=== PATIENT | female | born 1980 | race African-American/Black ===

== ENCOUNTER 2017-02-27 18:37 | Inpatient (IN) | payer MEDICAID ==
[~2017-02-27] VITALS: Ht 175.3 cm; Wt 112.6 kg
[2017-02-27] MEDS ORDERED: IV NORMAL SALINE 1000ML BAG 1,000 ML IV SCH (19:12)
[2017-02-27] MEDS ORDERED: ONDANSETRON PF 4 MG/2 ML VIAL. IV ONE (19:15)
[2017-02-27] MEDS ORDERED: hydrALAZINE 20 MG/ML VIAL. IVP ONE (19:15)
--- NOTE | 2017-02-27 19:26 | PHYS DOC ---
Past Medical History Past Medical History: Asthma, Hypertension, Other Additional Past Medical Histor: gallbladder problems Past Surgical History: Alcohol Use: None Drug Use: None Adult General Chief Complaint Chief Complaint: ABDOMINAL PAIN HPI HPI Patient is a 36 year old female who presents with complaint of abdominal pain. Patient states her symptoms started today. Patient rates her pain currently is 10 out of 10. Patient states the pain is sharp and located in her upper abdomen and in the right upper quadrant. Patient states that 1 month ago she was diagnosed with "gallbladder problems" in [place], [place]. Patient states that she recently moved this month to [place] because her was transferred by his job. The patient states that she had been told that she was supposed to have her gallbladder removed but states that for some reason this did not happen. She states that she was told that she may have eclampsia and had been put on "red pills" for her blood pressure but states that somebody recently stole them. Patient has had associated nausea and vomiting. Patient has not taken any medication to help with her symptoms. Patient states that normally when she gets the symptoms she is seen in an emergency department setting and given "ibuprofen through my IV." Patient also notes that she has had rectal bleeding however she is unable to quantify the amount of bleeding that she has noticed. Review of Systems Review of Systems Constitutional: Denies fever or chills [] Eyes: Denies change in visual acuity, redness, or eye pain [] HENT: Denies nasal congestion or sore throat [] Respiratory: Denies cough or shortness of breath [] Cardiovascular: Denies chest pain or edema [] GI: Abdominal pain, nausea, vomiting, bloody stools [] : Denies dysuria or hematuria [] Musculoskeletal: Denies back pain or joint pain [] Integument: Denies rash or skin lesions [] Neurologic: Denies headache, focal weakness or sensory changes [] Current Medications Current Medications Current Medications Medications (Trade) Dose Ordered Sig/Scottie Start Time Stop Time Status Last Admin Dose Admin Fentanyl Citrate 50 mcg 50 mcg PRN Q15MIN PRN 02/27/17 19:15 02/28/17 19:14 02/27/17 20:43 50 MCG Hydralazine HCl (Apresoline) 10 mg 1X ONCE 02/27/17 19:15 02/27/17 19:21 DC 02/27/17 19:38 10 MG Ondansetron HCl (Zofran) 4 mg 1X ONCE 02/27/17 19:15 02/27/17 19:21 DC 02/27/17 19:34 4 MG Sodium Chloride (Iv Sodium Chloride 0.9% 1000ml Bag) 1,000 ml @ 100 mls/hr Q10H 02/27/17 19:12 02/28/17 05:11 02/27/17 19:34 100 MLS/HR Allergies Allergies Allergies Coded Allergies Type Severity Reaction Last Updated Verified No Known Drug Allergies 02/27/17 No Physical Exam Physical Exam Constitutional: Alert, afebrile, hypertensive, appears in moderate discomfort. [ ] HENT: Normocephalic, atraumatic, bilateral external ears normal, oropharynx moist, no oral exudates, nose normal. [] Eyes: PERRLA, EOMI, conjunctiva normal, no discharge. [] Neck: Normal range of motion, no tenderness, supple, no stridor. [] Cardiovascular:Heart rate regular rhythm, no murmur [] Lungs & Thorax: Bilateral breath sounds clear to auscultation [] Abdomen: Bowel sounds normal, soft, epigastric and right upper quadrant tenderness to palpation with guarding, no rebound tenderness, no masses, no pulsatile masses. [] Skin: Warm, dry, no erythema, no rash. [] Back: No tenderness, no CVA tenderness. [] Extremities: No tenderness, no cyanosis, no clubbing, ROM intact, no edema. [] Neurologic: Alert and oriented X 3, normal motor function, normal sensory function, no focal deficits noted. [] Current Patient Data Vital Signs Vital Signs Date Time Temp Pulse Resp B/P Pulse Ox O2 Delivery O2 Flow Rate FiO2 02/27/17 20:43 24 100 Room Air 02/27/17 20:35 64 174/95 02/27/17 18:55 96.4 96.4 Lab Values Laboratory Tests Test 02/27/17 18:29 02/27/17 19:12 02/27/17 19:18 02/27/17 19:19 POC Urine HCG, Qualitative Hcg negative (Negative) Urine Opiates Screen Neg (NEG) Urine Methadone Screen Neg (NEG) Urine Barbiturates Neg (NEG) Urine Phencyclidine Screen Neg (NEG) Urine Amphetamine/Methamphetamine Neg (NEG) Urine Benzodiazepines Screen Neg (NEG) Urine Cocaine Screen Neg (NEG) Urine Cannabinoids Screen Pos (NEG) Urine Ethyl Alcohol Neg (NEG) White Blood Count 13.7x10^3/uL (4.0-11.0) H Red Blood Count 4.93x10^6/uL (3.50-5.40) Hemoglobin 13.7g/dL (12.0-15.5) Hematocrit 44.1% (36.0-47.0) Mean Corpuscular Volume 89fL (79-100) Mean Corpuscular Hemoglobin 28pg (25-35) Mean Corpuscular Hemoglobin Concent 31g/dL (31-37) Red Cell Distribution Width 14.9% (11.5-14.5) H Platelet Count 317x10^3/uL (140-400) Neutrophils (%) (Auto) 70% (31-73) Lymphocytes (%) (Auto) 19% (24-48) L Monocytes (%) (Auto) 6% (0-9) Eosinophils (%) (Auto) 4% (0-3) H Basophils (%) (Auto) 1% (0-3) Neutrophils # (Auto) 9.6x10^3uL (1.8-7.7) H Lymphocytes # (Auto) 2.6x10^3/uL (1.0-4.8) Monocytes # (Auto) 0.8x10^3/uL (0.0-1.1) Eosinophils # (Auto) 0.6x10^3/uL (0.0-0.7) Basophils # (Auto) 0.1x10^3/uL (0.0-0.2) Sodium Level 145mmol/L (136-145) Potassium Level 3.8mmol/L (3.5-5.1) Chloride Level 105mmol/L (98-107) Carbon Dioxide Level 31mmol/L (21-32) Anion Gap 9 (6-14) Blood Urea Nitrogen 8mg/dL (7-20) Creatinine 1.0mg/dL (0.6-1.0) Estimated GFR (Cockcroft-Gault) 75.1 BUN/Creatinine Ratio 8 (6-20) Glucose Level 106mg/dL (70-99) H Calcium Level 9.5mg/dL (8.5-10.1) Total Bilirubin 0.3mg/dL (0.2-1.0) Aspartate Amino Transferase (AST) 16U/L (15-37) Alanine Aminotransferase (ALT) 23U/L (14-59) Alkaline Phosphatase 78U/L (46-116) Total Protein 7.1g/dL (6.4-8.2) Albumin 3.6g/dL (3.4-5.0) Albumin/Globulin Ratio 1.0 (1.0-1.7) Lipase 93U/L (73-393) Urine Collection Type Unknown Urine Color Yellow Urine Clarity Cloudy Urine pH 7.5 Urine Specific [place] 1.015 Urine Protein 30mg/dL (NEG-TRACE) Urine Glucose (UA) Negativemg/dL (NEG) Urine Ketones (Stick) Negativemg/dL (NEG) Urine Blood Negative (NEG) Urine Nitrite Negative (NEG) Urine Bilirubin Negative (NEG) Urine Urobilinogen Dipstick 0.2mg/dL (0.2 mg/dL) Urine Leukocyte Esterase Negative (NEG) Urine RBC 0/HPF (0-2) Urine WBC 1-4/HPF (0-4) Urine Squamous Epithelial Cells Many/LPF Urine Bacteria Moderate/HPF (0-FEW) Urine Mucus Slight/LPF Test 02/27/17 19:45 Stool Occult Blood Negative (NEG) Laboratory Tests 02/27/17 19:18 Laboratory Tests 02/27/17 19:18 EKG EKG Not performed [] Radiology/Procedures Radiology/Procedures [facility] [address] [place], [place] [id number] IMAGING REPORT Signed PATIENT: CHARLES GE ACCOUNT: [id number] : 1980 LOCATION: ER AGE: 36 SEX: F EXAM STATUS: REG ER ORD. PHYSICIAN: MARCIO ROLAND MD REASON: right upper quadrant pain PROCEDURE: ABDOMEN LTD PROCEDURE Limited abdominal ultrasound. HISTORY Right upper quadrant pain radiates to the back. Nausea and vomiting. Symptoms increased postprandial. TECHNIQUE Real-time ultrasound imaging of the right upper quadrant of the abdomen is performed. COMPARISON None. FINDINGS Pancreas is not well seen. Portal flow is hepatopetal. Liver is normal in echotexture. Right hepatic lobe measures 16.2 cm, normal. Right kidney length 10.4 cm. No hydronephrosis. There is cholelithiasis. There is a stone towards the neck measuring 11 millimeters. Sonographic Agarwal sign is positive. Gallbladder wall is not thickened measuring 2.5 millimeters. No pericholecystic fluid is seen. The common bile duct is normal in caliber measuring 4 millimeters. IMPRESSION Cholelithiasis. Sonographic Agarwal sign is positive. No gallbladder wall thickening. Findings may indicate cholecystitis. This could be confirmed with nuclear medicine hepatobiliary scan as clinically warranted. Electronically signed by: Ziggy Miranda MD (Feb 27, 2017 20:44:17) DICTATED and SIGNED BY: ZIGGY MIRANDA MD DATE: 02/27/172043 CC: MARCIO ROLAND MD; NO PCP ~ [] Course & Med Decision Making Course & Med Decision Making Pertinent Labs and Imaging studies reviewed. (See chart for details) Patient was given IV fluids, fentanyl, Zofran, and Haldol to help with symptoms. On reevaluation, patient states her symptoms have improved and her pain levels currently 4 out of 10. Patient was noted to have a positive sonographic Agarwal's and positive study for cholelithiasis on her ultrasound. Patient also has leukocytosis on her lab work. Patient is showing signs of possible early acute cholecystitis. Patient also has significantly elevated blood pressure which was treated initially with IV hydralazine in the emergency department. Patient's blood pressure has improved but is still significantly elevated. The patient will require admission to the hospital for control blood pressure and surgical evaluation for possible removal. I spoke with Dr. Real of general surgery who agreed consult on patient in hospital. Patient was admitted to Dr. Lynch. Chris Disclaimer Chris Disclaimer This electronic medical record was generated, in whole or in part, using a voice recognition dictation system. Departure Departure Impression: Primary Impression: Accelerated hypertension Additional Impression: Acute cholecystitis Disposition: ADMITTED INPATIENT Admitting Physician: Napoleon Lynch Condition: GUARDED Referrals: NO PCP (PCP) Problem Qualifiers MARCIO ROLAND MD Feb 27, 2017 19:25
[2017-02-27 19:30] LABS: BASO # 0.1 x10^3/uL (0.0-0.2); BASO % 1 % (0-3); EOS % 4 % (0-3); HEMATOCRIT 44.1 % (36.0-47.0); HEMOGLOBIN 13.7 g/dL (12.0-15.5); LYMPH # 2.6 x10^3/uL (1.0-4.8); LYMPH % 19 % (24-48); MEAN CORPUSCULAR HEMOGLOBIN 28 pg (25-35); MEAN CORPUSCULAR HGB CONC 31 g/dL (31-37); MEAN CORPUSCULAR VOLUME 89 fL (79-100); MONO % 6 % (0-9); NEUT % 70 % (31-73); PLATELET COUNT 317 x10^3/uL (140-400); RED BLOOD COUNT 4.93 x10^6/uL (3.50-5.40); RED CELL DISTRIBUTION WIDTH 14.9 % (11.5-14.5); WHITE BLOOD COUNT 13.7 x10^3/uL (4.0-11.0)
[2017-02-27 19:33] LABS: BILIRUBIN,URINE NEGATIVE (NEG); GLUCOSE,URINE NEGATIVE (NEG); NITRITE,URINE NEGATIVE (NEG); PH,URINE 7.5; PROTEIN,URINE 30 mg/dL (NEG-TRACE); UROBILINOGEN,URINE 0.2 mg/dL (0.2 mg/dL)
[2017-02-27] MEDS: FENTANYL PF 100 MCG/2 ML VIAL. IV PRN ×2 (19:36→20:43)
[2017-02-27 19:41] LABS: BACTERIA,URINE MODERATE /HPF (0-FEW); RBC,URINE 0 /HPF (0-2); SQUAMOUS EPITHELIAL CELL,UR MANY /LPF
[2017-02-27 19:41] LABS: CALCIUM 9.5 mg/dL (8.5-10.1); GFR 75.1; POTASSIUM 3.8 mmol/L (3.5-5.1)
[2017-02-27 19:46] LABS: ALBUMIN 3.6 g/dL (3.4-5.0); TOTAL BILIRUBIN 0.3 mg/dL (0.2-1.0); TOTAL PROTEIN 7.1 g/dL (6.4-8.2)
[2017-02-27 20:22] LABS: NEG OBC FOB NEG; POS OBC FOB POS
[2017-02-27 20:26] LABS: BARBITURATES NEG (NEG); BENZODIAZEPINES NEG (NEG); CANNABINOIDS POS (NEG); COCAINE NEG (NEG); METHADONE NEG (NEG); OPIATES NEG (NEG); PHENCYCLIDINE NEG (NEG)
[2017-02-27 20:30] LABS: ETHANOL, URINE NEG (NEG)
--- NOTE | 2017-02-27 20:45 | RAD ---
PROCEDURE Limited abdominal ultrasound. HISTORY Right upper quadrant pain radiates to the back. Nausea and vomiting. Symptoms increased postprandial. TECHNIQUE Real-time ultrasound imaging of the right upper quadrant of the abdomen is performed. COMPARISON None. FINDINGS Pancreas is not well seen. Portal flow is hepatopetal. Liver is normal in echotexture. Right hepatic lobe measures 16.2 cm, normal. Right kidney length 10.4 cm. No hydronephrosis. There is cholelithiasis. There is a stone towards the neck measuring 11 millimeters. Sonographic Agarwal sign is positive. Gallbladder wall is not thickened measuring 2.5 millimeters. No pericholecystic fluid is seen. The common bile duct is normal in caliber measuring 4 millimeters. IMPRESSION Cholelithiasis. Sonographic Agarwal sign is positive. No gallbladder wall thickening. Findings may indicate cholecystitis. This could be confirmed with nuclear medicine hepatobiliary scan as clinically warranted. Electronically signed by: Ziggy Miranda MD (Feb 27, 2017 20:44:17)
[2017-02-27] MEDS ORDERED: ACETAMINOPHEN 325 MG TABLET. PO PRN (23:00)
[2017-02-27] MEDS ORDERED: hydrALAZINE 20 MG/ML VIAL. IVP PRN (23:00)
[2017-02-27] MEDS ORDERED: ONDANSETRON PF 4 MG/2 ML VIAL. IV PRN (23:00)
[2017-02-28] VITALS (12 sets, daily range): BP systolic 130–160; BP diastolic 81–100
[2017-02-28] MEDS: FENTANYL PF 100 MCG/2 ML VIAL. IV PRN ×4 (02:17→22:40)
[2017-02-28] MEDS: IV NORMAL SALINE 1000ML BAG 1,000 ML IV SCH ×3 (02:18→22:40)
[2017-02-28] MEDS ORDERED: LEVO100T PO (03:10)
[2017-02-28] MEDS ORDERED: PROAIR HFA8.5 GM INH (03:10)
--- NOTE | 2017-02-28 05:17 | ACF ---
Admit Criteria Forms Admit Criteria Forms Admit Criteria Forms HYPERTENSION Clinical Indications for Admission to Inpatient Care ( Place "X" for any and all applicable criteria): Admission is indicated for ANY ONE of the following(1)(2)(3)(4): [ ]I. Hypertensive emergency, with evidence of acute and progressing target organ disease as indicated by ANY ONE of the following: [ ]a) Hypertensive encephalopathy (eg, confusion, altered mental status) [ ]b) Cerebral infarction [ ]c) Intracranial hemorrhage [ ]d) Myocardial ischemia or infarction [ ]e) Pulmonary edema [ ]f) Aortic dissection [ ]g) Seizure [ ]h) Acute renal insufficiency [ ]i) Papilledema [ ]j) Microangiopathic hemolytic anemia [ ]II. Adrenergic crisis (eg, severe hypertension due to pheochromocytoma crisis, cocaine or amphetamine intoxication, or clonidine withdrawal) [X]III. Severe hypertension (SBP greater than 180 mmHg or DBP greater than 110 mmHg or greater than the 95th percentile for age, gender, and height in pediatric patients) that cannot be controlled (eg, to SBP less than 160 mmHg and DBP less than 100 mmHg in adults) by treatment with oral medication in emergency department or observation care Extended stay beyond goal length of stay may be needed for(11)(12)(13): [ ]a) Persistent hypertensive encephalopathy [ ]b) Continuation of pulmonary edema [ ]c) Recurring or persistent severe hypertension [ ]d) Target organ damage (eg, angina, stroke, aortic dissection) [ ]e) Associated renal insufficiency The original [employer] content created by [employer] has been revised. The portions of the content which have been revised are identified through the use of italic text or in bold, and [facility] has neither reviewed nor approved the modified material. All other unmodified content is copyright [employer]. Please see references footnoted in the original [employer] edition 2016 CAROLINE HAMILTON Feb 28, 2017 05:17
[2017-02-28] MEDS ORDERED: CEFAZOLIN 2GM PREMIX 50 ML IV ONE ×2 (07:00→11:55)
[2017-02-28 07:14] LABS: BASO # 0.1 x10^3/uL (0.0-0.2); BASO % 1 % (0-3); EOS % 6 % (0-3); HEMATOCRIT 41.1 % (36.0-47.0); HEMOGLOBIN 13.1 g/dL (12.0-15.5); LYMPH # 2.3 x10^3/uL (1.0-4.8); LYMPH % 24 % (24-48); MEAN CORPUSCULAR HEMOGLOBIN 29 pg (25-35); MEAN CORPUSCULAR HGB CONC 32 g/dL (31-37); MEAN CORPUSCULAR VOLUME 90 fL (79-100); MONO % 7 % (0-9); NEUT % 63 % (31-73); PLATELET COUNT 265 x10^3/uL (140-400); RED BLOOD COUNT 4.58 x10^6/uL (3.50-5.40); RED CELL DISTRIBUTION WIDTH 15.1 % (11.5-14.5); WHITE BLOOD COUNT 9.6 x10^3/uL (4.0-11.0)
[2017-02-28 07:20] LABS: CALCIUM 8.5 mg/dL (8.5-10.1); CREATININE 0.9 mg/dL (0.6-1.0); GFR 84.8; POTASSIUM 3.9 mmol/L (3.5-5.1)
--- NOTE | 2017-02-28 08:53 | PDOC2 ---
CONSULT Date of Consult Date of Consult DATE: 02/28/17 TIME: 08:49 Reason for Consult Reason for Consult: Abd pain Identification/Chief Complaint Chief Complaint Abd pain Source Source: Patient History of Present Illness Reason for Visit: 36 yo female who has had several episodes in the last year of abdominal pain. She was told in the past she had gallstones. Pain has gotten much worse over the last 24 hours associated with N/V. U/S showed gallstones and positive Agarwal 's sign. Past Medical History Cardiovascular: HTN Pulmonary: Asthma GI: No pertinent hx Heme/Onc: No pertinent hx Hepatobiliary: No pertinent hx Psych: No pertinent hx Rheumatologic: No pertinent hx Infectious disease: No pertinent hx ENT: No pertinent hx Renal/: No pertinent hx Endocrine: No pertinent hx Dermatology: No pertinent hx Past Surgical History Past Surgical History: Family History Family History: No Significant Social History No ALCOHOL: none Drugs: Marijuana Lives: with Family Current Problem List Problem List Problems Medical Problems: (1) Accelerated hypertension Status: Acute (2) Acute cholecystitis Status: Acute Current Medications Current Medications Current Medications Fentanyl Citrate 50 mcg 50 mcg PRN Q15MIN PRN IV PAIN GREATER THAN 3/10 Last administered on 02/27/17 20:43; Start 02/27/17 at 19:15; Stop 02/28/17 at 00:00 ; Status DC Sodium Chloride (Iv Sodium Chloride 0.9% 1000ml Bag) 1,000 ml @ 100 mls/hr Q10H IV Last administered on 02/27/17 19:34; Start 02/27/17 at 19:12; Stop at 05:11; Status DC Ondansetron HCl (Zofran) 4 mg 1X ONCE IV Last administered on 02/27/17 19:34 ; Start 02/27/17 at 19:15; Stop 02/27/17 at 19:21; Status DC Hydralazine HCl (Apresoline) 10 mg 1X ONCE IVP Last administered on 02/27/17 19:38; Start 02/27/17 at 19:15; Stop 02/27/17 at 19:21; Status DC Ondansetron HCl (Zofran) 4 mg PRN Q8HRS PRN IV NAUSEA/VOMITING; Start 02/27/17 at 23:00; Stop 02/28/17 at 22:59 Fentanyl Citrate 50 mcg 50 mcg PRN Q2HR PRN IV SEVERE PAIN Last administered on 02/28/17 02:17; Start 02/27/17 at 23:00; Stop 02/28/17 at 22:59 Sodium Chloride (Iv Sodium Chloride 0.9% 1000ml Bag) 1,000 ml @ 100 mls/hr Q10H IV Last administered on 02/28/17 02:18; Start 02/27/17 at 22:53; Stop at 22:52 Acetaminophen (Tylenol) 650 mg PRN Q4HRS PRN PO FEVER Last administered on 02/28 02:16; Start 02/27/17 at 23:00; Stop 02/28/17 at 22:59 Hydralazine HCl 10 mg 10 mg PRN Q4HRS PRN IVP ELEVATED BP, SEE COMMENTS; Start 02/27/17 at 23:00 Cefazolin Sodium/ Dextrose (Ancef 2gm Premix) 50 ml @ 100 mls/hr ONCE ONCE IV ; Start 02/28/17 at 07:00; Stop 02/28/17 at 07:29; Status DC Active Scripts Active Reported Proair Hfa Inhaler (Albuterol Sulfate) 8.5 Gm Hfa.aer.ad 1 Puff INH PRN Q6HRS PRN Synthroid (Levothyroxine Sodium) 100 Mcg Tablet 1 Tab PO DAILY Allergies Allergies: Coded Allergies: No Known Drug Allergies (Unverified , 02/27/17) ROS Gastrointestinal: Yes Abdominal Pain, Yes Nausea, Yes Vomiting Physical Exam General: Alert, Oriented X3, Cooperative, mild distress HEENT: Atraumatic, PERRLA, EOMI Lungs: Clear to auscultation, Normal air movement Heart: Regular rate, No murmurs Abdomen: Normal bowel sounds, Soft, Other (TTP RUQ) Extremities: No edema Skin: No significant lesion Neuro: Normal speech Psych/Mental Status: Mental status NL Vitals VITALS Vital Signs Date Time Temp Pulse Resp B/P Pulse Ox O2 Delivery O2 Flow Rate FiO2 02/28/17 07:00 97.8 91 16 130/84 95 Room Air 97.8 Labs Labs Laboratory Tests Test 02/27/17 18:29 02/27/17 19:12 02/27/17 19:18 02/27/17 19:19 Bedside Urine HCG, Qualitative Hcg negative (Negative) Urine Opiates Screen Neg (NEG) Urine Methadone Screen Neg (NEG) Urine Barbiturates Neg (NEG) Urine Phencyclidine Screen Neg (NEG) Urine Amphetamine/Methamphetamine Neg (NEG) Urine Benzodiazepines Screen Neg (NEG) Urine Cocaine Screen Neg (NEG) Urine Cannabinoids Screen Pos (NEG) Urine Ethyl Alcohol Neg (NEG) White Blood Count 13.7x10^3/uL (4.0-11.0) Red Blood Count 4.93x10^6/uL (3.50-5.40) Hemoglobin 13.7g/dL (12.0-15.5) Hematocrit 44.1% (36.0-47.0) Mean Corpuscular Volume 89fL (79-100) Mean Corpuscular Hemoglobin 28pg (25-35) Mean Corpuscular Hemoglobin Concent 31g/dL (31-37) Red Cell Distribution Width 14.9% (11.5-14.5) Platelet Count 317x10^3/uL (140-400) Neutrophils (%) (Auto) 70% (31-73) Lymphocytes (%) (Auto) 19% (24-48) Monocytes (%) (Auto) 6% (0-9) Eosinophils (%) (Auto) 4% (0-3) Basophils (%) (Auto) 1% (0-3) Neutrophils # (Auto) 9.6x10^3uL (1.8-7.7) Lymphocytes # (Auto) 2.6x10^3/uL (1.0-4.8) Monocytes # (Auto) 0.8x10^3/uL (0.0-1.1) Eosinophils # (Auto) 0.6x10^3/uL (0.0-0.7) Basophils # (Auto) 0.1x10^3/uL (0.0-0.2) Sodium Level 145mmol/L (136-145) Potassium Level 3.8mmol/L (3.5-5.1) Chloride Level 105mmol/L (98-107) Carbon Dioxide Level 31mmol/L (21-32) Anion Gap 9 (6-14) Blood Urea Nitrogen 8mg/dL (7-20) Creatinine 1.0mg/dL (0.6-1.0) Estimated GFR (Cockcroft-Gault) 75.1 BUN/Creatinine Ratio 8 (6-20) Glucose Level 106mg/dL (70-99) Calcium Level 9.5mg/dL (8.5-10.1) Total Bilirubin 0.3mg/dL (0.2-1.0) Aspartate Amino Transf (AST/SGOT) 16U/L (15-37) Alanine Aminotransferase (ALT/SGPT) 23U/L (14-59) Alkaline Phosphatase 78U/L (46-116) Total Protein 7.1g/dL (6.4-8.2) Albumin 3.6g/dL (3.4-5.0) Albumin/Globulin Ratio 1.0 (1.0-1.7) Lipase 93U/L (73-393) Urine Collection Type Unknown Urine Color Yellow Urine Clarity Cloudy Urine pH 7.5 Urine Specific [place] 1.015 Urine Protein 30mg/dL (NEG-TRACE) Urine Glucose (UA) Negativemg/dL (NEG) Urine Ketones (Stick) Negativemg/dL (NEG) Urine Blood Negative (NEG) Urine Nitrite Negative (NEG) Urine Bilirubin Negative (NEG) Urine Urobilinogen Dipstick 0.2mg/dL (0.2 mg/dL) Urine Leukocyte Esterase Negative (NEG) Urine RBC 0/HPF (0-2) Urine WBC 1-4/HPF (0-4) Urine Squamous Epithelial Cells Many/LPF Urine Bacteria Moderate/HPF (0-FEW) Urine Mucus Slight/LPF Test 02/27/17 19:45 02/28/17 06:20 Stool Occult Blood Negative (NEG) White Blood Count 9.6x10^3/uL (4.0-11.0) Red Blood Count 4.58x10^6/uL (3.50-5.40) Hemoglobin 13.1g/dL (12.0-15.5) Hematocrit 41.1% (36.0-47.0) Mean Corpuscular Volume 90fL (79-100) Mean Corpuscular Hemoglobin 29pg (25-35) Mean Corpuscular Hemoglobin Concent 32g/dL (31-37) Red Cell Distribution Width 15.1% (11.5-14.5) Platelet Count 265x10^3/uL (140-400) Neutrophils (%) (Auto) 63% (31-73) Lymphocytes (%) (Auto) 24% (24-48) Monocytes (%) (Auto) 7% (0-9) Eosinophils (%) (Auto) 6% (0-3) Basophils (%) (Auto) 1% (0-3) Neutrophils # (Auto) 6.0x10^3uL (1.8-7.7) Lymphocytes # (Auto) 2.3x10^3/uL (1.0-4.8) Monocytes # (Auto) 0.6x10^3/uL (0.0-1.1) Eosinophils # (Auto) 0.6x10^3/uL (0.0-0.7) Basophils # (Auto) 0.1x10^3/uL (0.0-0.2) Sodium Level 143mmol/L (136-145) Potassium Level 3.9mmol/L (3.5-5.1) Chloride Level 106mmol/L (98-107) Carbon Dioxide Level 27mmol/L (21-32) Anion Gap 10 (6-14) Blood Urea Nitrogen 5mg/dL (7-20) Creatinine 0.9mg/dL (0.6-1.0) Estimated GFR (Cockcroft-Gault) 84.8 Glucose Level 92mg/dL (70-99) Calcium Level 8.5mg/dL (8.5-10.1) Laboratory Tests Test 02/27/17 18:29 02/27/17 19:12 02/27/17 19:18 02/27/17 19:19 Bedside Urine HCG, Qualitative Hcg negative (Negative) Urine Opiates Screen Neg (NEG) Urine Methadone Screen Neg (NEG) Urine Barbiturates Neg (NEG) Urine Phencyclidine Screen Neg (NEG) Urine Amphetamine/Methamphetamine Neg (NEG) Urine Benzodiazepines Screen Neg (NEG) Urine Cocaine Screen Neg (NEG) Urine Cannabinoids Screen Pos (NEG) Urine Ethyl Alcohol Neg (NEG) White Blood Count 13.7x10^3/uL (4.0-11.0) Red Blood Count 4.93x10^6/uL (3.50-5.40) Hemoglobin 13.7g/dL (12.0-15.5) Hematocrit 44.1% (36.0-47.0) Mean Corpuscular Volume 89fL (79-100) Mean Corpuscular Hemoglobin 28pg (25-35) Mean Corpuscular Hemoglobin Concent 31g/dL (31-37) Red Cell Distribution Width 14.9% (11.5-14.5) Platelet Count 317x10^3/uL (140-400) Neutrophils (%) (Auto) 70% (31-73) Lymphocytes (%) (Auto) 19% (24-48) Monocytes (%) (Auto) 6% (0-9) Eosinophils (%) (Auto) 4% (0-3) Basophils (%) (Auto) 1% (0-3) Neutrophils # (Auto) 9.6x10^3uL (1.8-7.7) Lymphocytes # (Auto) 2.6x10^3/uL (1.0-4.8) Monocytes # (Auto) 0.8x10^3/uL (0.0-1.1) Eosinophils # (Auto) 0.6x10^3/uL (0.0-0.7) Basophils # (Auto) 0.1x10^3/uL (0.0-0.2) Sodium Level 145mmol/L (136-145) Potassium Level 3.8mmol/L (3.5-5.1) Chloride Level 105mmol/L (98-107) Carbon Dioxide Level 31mmol/L (21-32) Anion Gap 9 (6-14) Blood Urea Nitrogen 8mg/dL (7-20) Creatinine 1.0mg/dL (0.6-1.0) Estimated GFR (Cockcroft-Gault) 75.1 BUN/Creatinine Ratio 8 (6-20) Glucose Level 106mg/dL (70-99) Calcium Level 9.5mg/dL (8.5-10.1) Total Bilirubin 0.3mg/dL (0.2-1.0) Aspartate Amino Transf (AST/SGOT) 16U/L (15-37) Alanine Aminotransferase (ALT/SGPT) 23U/L (14-59) Alkaline Phosphatase 78U/L (46-116) Total Protein 7.1g/dL (6.4-8.2) Albumin 3.6g/dL (3.4-5.0) Albumin/Globulin Ratio 1.0 (1.0-1.7) Lipase 93U/L (73-393) Urine Collection Type Unknown Urine Color Yellow Urine Clarity Cloudy Urine pH 7.5 Urine Specific [place] 1.015 Urine Protein 30mg/dL (NEG-TRACE) Urine Glucose (UA) Negativemg/dL (NEG) Urine Ketones (Stick) Negativemg/dL (NEG) Urine Blood Negative (NEG) Urine Nitrite Negative (NEG) Urine Bilirubin Negative (NEG) Urine Urobilinogen Dipstick 0.2mg/dL (0.2 mg/dL) Urine Leukocyte Esterase Negative (NEG) Urine RBC 0/HPF (0-2) Urine WBC 1-4/HPF (0-4) Urine Squamous Epithelial Cells Many/LPF Urine Bacteria Moderate/HPF (0-FEW) Urine Mucus Slight/LPF Test 02/27/17 19:45 02/28/17 06:20 Stool Occult Blood Negative (NEG) White Blood Count 9.6x10^3/uL (4.0-11.0) Red Blood Count 4.58x10^6/uL (3.50-5.40) Hemoglobin 13.1g/dL (12.0-15.5) Hematocrit 41.1% (36.0-47.0) Mean Corpuscular Volume 90fL (79-100) Mean Corpuscular Hemoglobin 29pg (25-35) Mean Corpuscular Hemoglobin Concent 32g/dL (31-37) Red Cell Distribution Width 15.1% (11.5-14.5) Platelet Count 265x10^3/uL (140-400) Neutrophils (%) (Auto) 63% (31-73) Lymphocytes (%) (Auto) 24% (24-48) Monocytes (%) (Auto) 7% (0-9) Eosinophils (%) (Auto) 6% (0-3) Basophils (%) (Auto) 1% (0-3) Neutrophils # (Auto) 6.0x10^3uL (1.8-7.7) Lymphocytes # (Auto) 2.3x10^3/uL (1.0-4.8) Monocytes # (Auto) 0.6x10^3/uL (0.0-1.1) Eosinophils # (Auto) 0.6x10^3/uL (0.0-0.7) Basophils # (Auto) 0.1x10^3/uL (0.0-0.2) Sodium Level 143mmol/L (136-145) Potassium Level 3.9mmol/L (3.5-5.1) Chloride Level 106mmol/L (98-107) Carbon Dioxide Level 27mmol/L (21-32) Anion Gap 10 (6-14) Blood Urea Nitrogen 5mg/dL (7-20) Creatinine 0.9mg/dL (0.6-1.0) Estimated GFR (Cockcroft-Gault) 84.8 Glucose Level 92mg/dL (70-99) Calcium Level 8.5mg/dL (8.5-10.1) Images Images as above HPI Assessment/Plan Assessment/Plan Symptomatic cholelithiasis Plan L/S Cholecystectomy today LOKI CHEEMA MD Feb 28, 2017 08:53
[2017-02-28] MEDS ORDERED: IV RINGERS,LACTATED 1000ML 1,000 ML IV SCH (09:43)
[2017-02-28] MEDS ORDERED: IOHEXOL 300 MG/ML 50 ML VIAL. ONE (09:43)
[2017-02-28] MEDS ORDERED: SURGICEL HEMOSTAT 4X8 EACH. ONE (09:43)
[2017-02-28] MEDS ORDERED: BUPIVACAINE-EPI 0.25%-1:200000 MPF 30 ML VIAL. ONE (09:43)
[2017-02-28] MEDS ORDERED: HYDROMORPHONE 2 MG/ML VIAL. IV PRN (09:45)
[2017-02-28] MEDS ORDERED: FENTANYL PF 100 MCG/2 ML VIAL. IV PRN (09:45)
[2017-02-28] MEDS ORDERED: ONDANSETRON PF 4 MG/2 ML VIAL. IV PRN (09:45)
[2017-02-28] MEDS ORDERED: MORPHINE SULFATE 2 MG/ML DISP.SYRIN. IV PRN (09:45)
[2017-02-28] MEDS ORDERED: LIDOCAINE 1% 1 ML SYRINGE. ID PRN (09:45)
[2017-02-28] MEDS ORDERED: PROCHLORPERAZINE 10 MG/2 ML VIAL. IV PRN (09:45)
--- NOTE | 2017-02-28 10:13 | PDOC1 ---
History and Physical Past Medical History Cardiovascular: HTN Pulmonary: Asthma GI: No pertinent hx Heme/Onc: No pertinent hx Hepatobiliary: No pertinent hx Psych: No pertinent hx Rheumatologic: No pertinent hx Infectious disease: No pertinent hx ENT: No pertinent hx Renal/: No pertinent hx Endocrine: No pertinent hx Dermatology: No pertinent hx Past Surgical History Past Surgical History: Family History Family History: No Significant Social History Smoke: No ALCOHOL: none Drugs: Marijuana Current Problem List Problem List Problems Medical Problems: (1) Accelerated hypertension Status: Acute (2) Acute cholecystitis Status: Acute Current Medications Current Medications Current Medications Medications (Trade) Dose Ordered Sig/Scottie Start Time Stop Time Status Last Admin Dose Admin Acetaminophen (Tylenol) 650 mg PRN Q4HRS PRN 02/27/17 23:00 02/28/17 22:59 02/28/17 02:16 650 MG Bupivacaine HCl/ Epinephrine Bitart (Sensorcaine-Epi 0.25%-1:[id number] Mpf) 30 ml STK-MED ONCE 02/28/17 09:43 02/28/17 09:44 DC Cefazolin Sodium/ Dextrose (Ancef 2gm Premix) 50 ml @ 100 mls/hr ONCE ONCE 02/28/17 07:00 02/28/17 07:29 DC Cellulose 1 each STK-MED ONCE 02/28/17 09:43 02/28/17 09:44 DC Fentanyl Citrate (Fentanyl 2ml Vial) 50 mcg PRN Q5MIN PRN 02/28/17 09:45 03/01/17 09:44 Fentanyl Citrate 50 mcg 50 mcg PRN Q2HR PRN 02/27/17 23:00 02/28/17 22:59 02/28/17 02:17 50 MCG Hydralazine HCl (Apresoline) 10 mg 1X ONCE 02/27/17 19:15 02/27/17 19:21 DC 02/27/17 19:38 10 MG Hydralazine HCl 10 mg 10 mg PRN Q4HRS PRN 02/27/17 23:00 Hydromorphone HCl (Dilaudid) 0.5 mg PRN Q10MIN PRN 02/28/17 09:45 03/01/17 09:44 Iohexol (Omnipaque 300 Mg/ml) 50 ml STK-MED ONCE 02/28/17 09:43 02/28/17 09:44 DC Lactated Ringer's (Iv Lactated Ringers) 1,000 ml @ 0 mls/hr Q0M 02/28/17 09:43 02/28/17 21:42 Lidocaine HCl 2 ml PRN 1X PRN 02/28/17 09:45 03/01/17 09:44 Morphine Sulfate 1 mg 1 mg PRN Q10MIN PRN 02/28/17 09:45 03/01/17 09:44 Ondansetron HCl (Zofran) 4 mg PRN Q6HRS PRN 02/28/17 09:45 03/01/17 09:44 Prochlorperazine Edisylate (Compazine) 5 mg PACU PRN PRN 02/28/17 09:45 03/01/17 09:44 Sodium Chloride (Iv Sodium Chloride 0.9% 1000ml Bag) 1,000 ml @ 100 mls/hr Q10H 02/27/17 22:53 02/28/17 22:52 02/28/17 08:53 100 MLS/HR Allergies Allergies Allergies Coded Allergies Type Severity Reaction Last Updated Verified No Known Drug Allergies 02/27/17 No ROS Review of System CONSTITUTIONAL: No fever or chills EYES: No recent changes SKIN: No rash or itching CARDIOVASCULAR: No chest pain, syncope, palpitations, or edema RESPIRATORY: No SOB or cough GASTROINTESTINAL: Nausea, vomiting or but abdominal pain NEUROLOGICAL: No headaches or weakness ENDOCRINE: No cold or heat intolerance GENITOURINARY: No urgency or frequency of urination MUSCULOSKELETAL: No back pain or joint pain LYMPHATICS: No enlarged lymph nodes PSYCHIATRIC: No anxiety or depression Physical Exam Physical Exam GEN.: No apparent distress. Alert and oriented. HEENT: Head is normocephalic, atraumatic NECK: Supple. No JVD LUNGS: Clear to auscultation. normal airflow HEART: RRR, S1, S2 present. Peripheral pulses intact ABDOMEN: Soft, mild RUQ zakia. Positive bowel sounds. EXTREMITIES: Without any cyanosis. NEUROLOGIC: Normal speech, normal tone PSYCHIATRIC: Normal affect, normal mood. SKIN: No visible rash Vitals Vitals Vital Signs Date Time Temp Pulse Resp B/P Pulse Ox O2 Delivery O2 Flow Rate FiO2 02/28/17 07:00 97.8 91 16 130/84 95 Room Air 97.8 Labs Labs Laboratory Tests Test 02/27/17 18:29 02/27/17 19:12 02/27/17 19:18 02/27/17 19:19 Bedside Urine HCG, Qualitative Hcg negative (Negative) Urine Opiates Screen Neg (NEG) Urine Methadone Screen Neg (NEG) Urine Barbiturates Neg (NEG) Urine Phencyclidine Screen Neg (NEG) Urine Amphetamine/Methamphetamine Neg (NEG) Urine Benzodiazepines Screen Neg (NEG) Urine Cocaine Screen Neg (NEG) Urine Cannabinoids Screen Pos (NEG) Urine Ethyl Alcohol Neg (NEG) White Blood Count 13.7x10^3/uL (4.0-11.0) Red Blood Count 4.93x10^6/uL (3.50-5.40) Hemoglobin 13.7g/dL (12.0-15.5) Hematocrit 44.1% (36.0-47.0) Mean Corpuscular Volume 89fL (79-100) Mean Corpuscular Hemoglobin 28pg (25-35) Mean Corpuscular Hemoglobin Concent 31g/dL (31-37) Red Cell Distribution Width 14.9% (11.5-14.5) Platelet Count 317x10^3/uL (140-400) Neutrophils (%) (Auto) 70% (31-73) Lymphocytes (%) (Auto) 19% (24-48) Monocytes (%) (Auto) 6% (0-9) Eosinophils (%) (Auto) 4% (0-3) Basophils (%) (Auto) 1% (0-3) Neutrophils # (Auto) 9.6x10^3uL (1.8-7.7) Lymphocytes # (Auto) 2.6x10^3/uL (1.0-4.8) Monocytes # (Auto) 0.8x10^3/uL (0.0-1.1) Eosinophils # (Auto) 0.6x10^3/uL (0.0-0.7) Basophils # (Auto) 0.1x10^3/uL (0.0-0.2) Sodium Level 145mmol/L (136-145) Potassium Level 3.8mmol/L (3.5-5.1) Chloride Level 105mmol/L (98-107) Carbon Dioxide Level 31mmol/L (21-32) Anion Gap 9 (6-14) Blood Urea Nitrogen 8mg/dL (7-20) Creatinine 1.0mg/dL (0.6-1.0) Estimated GFR (Cockcroft-Gault) 75.1 BUN/Creatinine Ratio 8 (6-20) Glucose Level 106mg/dL (70-99) Calcium Level 9.5mg/dL (8.5-10.1) Total Bilirubin 0.3mg/dL (0.2-1.0) Aspartate Amino Transf (AST/SGOT) 16U/L (15-37) Alanine Aminotransferase (ALT/SGPT) 23U/L (14-59) Alkaline Phosphatase 78U/L (46-116) Total Protein 7.1g/dL (6.4-8.2) Albumin 3.6g/dL (3.4-5.0) Albumin/Globulin Ratio 1.0 (1.0-1.7) Lipase 93U/L (73-393) Urine Collection Type Unknown Urine Color Yellow Urine Clarity Cloudy Urine pH 7.5 Urine Specific [place] 1.015 Urine Protein 30mg/dL (NEG-TRACE) Urine Glucose (UA) Negativemg/dL (NEG) Urine Ketones (Stick) Negativemg/dL (NEG) Urine Blood Negative (NEG) Urine Nitrite Negative (NEG) Urine Bilirubin Negative (NEG) Urine Urobilinogen Dipstick 0.2mg/dL (0.2 mg/dL) Urine Leukocyte Esterase Negative (NEG) Urine RBC 0/HPF (0-2) Urine WBC 1-4/HPF (0-4) Urine Squamous Epithelial Cells Many/LPF Urine Bacteria Moderate/HPF (0-FEW) Urine Mucus Slight/LPF Test 02/27/17 19:45 02/28/17 06:20 Stool Occult Blood Negative (NEG) White Blood Count 9.6x10^3/uL (4.0-11.0) Red Blood Count 4.58x10^6/uL (3.50-5.40) Hemoglobin 13.1g/dL (12.0-15.5) Hematocrit 41.1% (36.0-47.0) Mean Corpuscular Volume 90fL (79-100) Mean Corpuscular Hemoglobin 29pg (25-35) Mean Corpuscular Hemoglobin Concent 32g/dL (31-37) Red Cell Distribution Width 15.1% (11.5-14.5) Platelet Count 265x10^3/uL (140-400) Neutrophils (%) (Auto) 63% (31-73) Lymphocytes (%) (Auto) 24% (24-48) Monocytes (%) (Auto) 7% (0-9) Eosinophils (%) (Auto) 6% (0-3) Basophils (%) (Auto) 1% (0-3) Neutrophils # (Auto) 6.0x10^3uL (1.8-7.7) Lymphocytes # (Auto) 2.3x10^3/uL (1.0-4.8) Monocytes # (Auto) 0.6x10^3/uL (0.0-1.1) Eosinophils # (Auto) 0.6x10^3/uL (0.0-0.7) Basophils # (Auto) 0.1x10^3/uL (0.0-0.2) Sodium Level 143mmol/L (136-145) Potassium Level 3.9mmol/L (3.5-5.1) Chloride Level 106mmol/L (98-107) Carbon Dioxide Level 27mmol/L (21-32) Anion Gap 10 (6-14) Blood Urea Nitrogen 5mg/dL (7-20) Creatinine 0.9mg/dL (0.6-1.0) Estimated GFR (Cockcroft-Gault) 84.8 Glucose Level 92mg/dL (70-99) Calcium Level 8.5mg/dL (8.5-10.1) Laboratory Tests Test 02/27/17 18:29 02/27/17 19:12 02/27/17 19:18 02/27/17 19:19 Bedside Urine HCG, Qualitative Hcg negative (Negative) Urine Opiates Screen Neg (NEG) Urine Methadone Screen Neg (NEG) Urine Barbiturates Neg (NEG) Urine Phencyclidine Screen Neg (NEG) Urine Amphetamine/Methamphetamine Neg (NEG) Urine Benzodiazepines Screen Neg (NEG) Urine Cocaine Screen Neg (NEG) Urine Cannabinoids Screen Pos (NEG) Urine Ethyl Alcohol Neg (NEG) White Blood Count 13.7x10^3/uL (4.0-11.0) Red Blood Count 4.93x10^6/uL (3.50-5.40) Hemoglobin 13.7g/dL (12.0-15.5) Hematocrit 44.1% (36.0-47.0) Mean Corpuscular Volume 89fL (79-100) Mean Corpuscular Hemoglobin 28pg (25-35) Mean Corpuscular Hemoglobin Concent 31g/dL (31-37) Red Cell Distribution Width 14.9% (11.5-14.5) Platelet Count 317x10^3/uL (140-400) Neutrophils (%) (Auto) 70% (31-73) Lymphocytes (%) (Auto) 19% (24-48) Monocytes (%) (Auto) 6% (0-9) Eosinophils (%) (Auto) 4% (0-3) Basophils (%) (Auto) 1% (0-3) Neutrophils # (Auto) 9.6x10^3uL (1.8-7.7) Lymphocytes # (Auto) 2.6x10^3/uL (1.0-4.8) Monocytes # (Auto) 0.8x10^3/uL (0.0-1.1) Eosinophils # (Auto) 0.6x10^3/uL (0.0-0.7) Basophils # (Auto) 0.1x10^3/uL (0.0-0.2) Sodium Level 145mmol/L (136-145) Potassium Level 3.8mmol/L (3.5-5.1) Chloride Level 105mmol/L (98-107) Carbon Dioxide Level 31mmol/L (21-32) Anion Gap 9 (6-14) Blood Urea Nitrogen 8mg/dL (7-20) Creatinine 1.0mg/dL (0.6-1.0) Estimated GFR (Cockcroft-Gault) 75.1 BUN/Creatinine Ratio 8 (6-20) Glucose Level 106mg/dL (70-99) Calcium Level 9.5mg/dL (8.5-10.1) Total Bilirubin 0.3mg/dL (0.2-1.0) Aspartate Amino Transf (AST/SGOT) 16U/L (15-37) Alanine Aminotransferase (ALT/SGPT) 23U/L (14-59) Alkaline Phosphatase 78U/L (46-116) Total Protein 7.1g/dL (6.4-8.2) Albumin 3.6g/dL (3.4-5.0) Albumin/Globulin Ratio 1.0 (1.0-1.7) Lipase 93U/L (73-393) Urine Collection Type Unknown Urine Color Yellow Urine Clarity Cloudy Urine pH 7.5 Urine Specific [place] 1.015 Urine Protein 30mg/dL (NEG-TRACE) Urine Glucose (UA) Negativemg/dL (NEG) Urine Ketones (Stick) Negativemg/dL (NEG) Urine Blood Negative (NEG) Urine Nitrite Negative (NEG) Urine Bilirubin Negative (NEG) Urine Urobilinogen Dipstick 0.2mg/dL (0.2 mg/dL) Urine Leukocyte Esterase Negative (NEG) Urine RBC 0/HPF (0-2) Urine WBC 1-4/HPF (0-4) Urine Squamous Epithelial Cells Many/LPF Urine Bacteria Moderate/HPF (0-FEW) Urine Mucus Slight/LPF Test 02/27/17 19:45 02/28/17 06:20 Stool Occult Blood Negative (NEG) White Blood Count 9.6x10^3/uL (4.0-11.0) Red Blood Count 4.58x10^6/uL (3.50-5.40) Hemoglobin 13.1g/dL (12.0-15.5) Hematocrit 41.1% (36.0-47.0) Mean Corpuscular Volume 90fL (79-100) Mean Corpuscular Hemoglobin 29pg (25-35) Mean Corpuscular Hemoglobin Concent 32g/dL (31-37) Red Cell Distribution Width 15.1% (11.5-14.5) Platelet Count 265x10^3/uL (140-400) Neutrophils (%) (Auto) 63% (31-73) Lymphocytes (%) (Auto) 24% (24-48) Monocytes (%) (Auto) 7% (0-9) Eosinophils (%) (Auto) 6% (0-3) Basophils (%) (Auto) 1% (0-3) Neutrophils # (Auto) 6.0x10^3uL (1.8-7.7) Lymphocytes # (Auto) 2.3x10^3/uL (1.0-4.8) Monocytes # (Auto) 0.6x10^3/uL (0.0-1.1) Eosinophils # (Auto) 0.6x10^3/uL (0.0-0.7) Basophils # (Auto) 0.1x10^3/uL (0.0-0.2) Sodium Level 143mmol/L (136-145) Potassium Level 3.9mmol/L (3.5-5.1) Chloride Level 106mmol/L (98-107) Carbon Dioxide Level 27mmol/L (21-32) Anion Gap 10 (6-14) Blood Urea Nitrogen 5mg/dL (7-20) Creatinine 0.9mg/dL (0.6-1.0) Estimated GFR (Cockcroft-Gault) 84.8 Glucose Level 92mg/dL (70-99) Calcium Level 8.5mg/dL (8.5-10.1) VTE Prophylaxis Ordered VTE Prophylaxis Devices: Yes VTE Pharmacological Prophylaxi: Yes NICOLAS ALONSO MD Feb 28, 2017 10:13
[2017-02-28] MEDS ORDERED: ALBUTEROL SULFATE 2.5 MG/3 ML NEBU. NEB PRN (11:45)
[2017-02-28] MEDS ORDERED: PROPOFOL 20 ML IV ONE ×2 (12:44→13:07)
[2017-02-28] MEDS ORDERED: FENTANYL PF 100 MCG/2 ML VIAL. ONE ×2 (12:44→13:19)
[2017-02-28] MEDS ORDERED: ROCURONIUM 50 MG/5 ML VIAL. ONE (12:44)
[2017-02-28] MEDS ORDERED: DESFLURANE > 120 MINUTES IH ONE (12:44)
[2017-02-28] MEDS ORDERED: ONDANSETRON PF 4 MG/2 ML VIAL. ONE (12:45)
[2017-02-28] MEDS ORDERED: LIDOCAINE 2% 100 MG/5 ML SYRINGE. ONE (12:45)
[2017-02-28] MEDS ORDERED: ESMOLOL 100 MG/10 ML VIAL. IV ONE (13:10)
[2017-02-28] MEDS ORDERED: LABETALOL 20 MG/4 ML DISP.SYRIN. ONE (13:21)
[2017-02-28] MEDS ORDERED: NEOSTIGMINE METHYLSULFATE 5 MG/5 ML SYRINGE. ONE (13:34)
[2017-02-28] MEDS ORDERED: GLYCOPYRROLATE 1 MG/5 ML VIAL. ONE (13:34)
--- NOTE | 2017-02-28 13:43 | PDOC ---
BRIEF OPERATIVE NOTE Date: Feb 28, 2017 Pre-Op Diagnosis Cholecystitis with cholelithiasis Post-Op Diagnosis Same Procedure Performed L/S Cholecystectomy Surgeon Farhan Anesthesia Type: General Blood Loss 10ml Specimens Obtained Gallbladder Findings as above Complications None LOKI CHEEMA MD Feb 28, 2017 1:43 pm
[2017-02-28] MEDS ORDERED: OXYCODONE/APAP 5/325 TABLET. PO PRN ×2 (13:45)
[2017-02-28] MEDS ORDERED: MORPHINE SULFATE 10 MG/ML VIAL. ONE (13:47)
--- NOTE | 2017-02-28 14:44 | HP ---
ADMIT DATE: 02/27/2017 CHIEF COMPLAINT: Abdominal pain. HISTORY OF PRESENT ILLNESS: A 36-year-old -[place] female, who presented to the ER with complaints of abdominal pain, right upper quadrant pain. The abdominal pain was there for nearly a few years. She was diagnosed with gallstones in the past; however, she recently moved from [place], [place] to [facility]. She never had any surgeries. The pain is intractable in nature at the time of her presentation, 10/10, and dull in nature. Denies any fevers, chills or hematemesis or hematochezia. Also, she had preeclampsia and she has a 4-month-old child; however, she is not taking any blood pressure medications at this time. PAST MEDICAL HISTORY: Hypertension, questionable asthma, hypothyroidism, gallbladder problems, and . PERSONAL HISTORY: No smoking, no alcohol, and no drug abuse. Recently moved to [facility]. FAMILY HISTORY: Unknown. REVIEW OF SYSTEMS AND PHYSICAL EXAMINATION: Please see my electronic H and P. LABORATORY FINDINGS: CBC within normal limits, except for a WBC count of 13.7. Chemistry within normal limits. Toxicology is positive for cannabinoids. Urine nitrites negative, leukocyte esterase negative. test negative. Stool occult test is negative. IMAGING STUDIES: Ultrasound of the abdomen showed cholelithiasis with positive Agarwal's sign, sonographic. ASSESSMENT: 1. Right upper quadrant abdominal pain due to possible cholecystitis, planning for a laparoscopic cholecystectomy today. 2. Hypothyroidism, chronic, stable. 3. Questionable hypertension, currently controlled without any medications, maybe elevated at the time of presentation due to pain. PLAN: 1. Pain control with morphine IV q. 2h., and p.o. and IV hydration. 2. I will resume her home medications. 3. . ____ has been consulted, planning for cholecystectomy today. The patient is agreeable. NICOLAS ALONSO MD DR: YUSUF/corazon JOB#: [id number] / [id number]
[2017-02-28] MEDS: LEVOTHYROXINE 100 MCG TABLET PO SCH (16:27)
[2017-02-28] MEDS: KETOROLAC 15 MG/ML VIAL. IV SCH (17:55)
--- NOTE | 2017-02-28 19:15 | OP ---
DATE OF SURGERY: 02/28/2017 PREOPERATIVE DIAGNOSES: Cholecystitis, cholelithiasis. POSTOPERATIVE DIAGNOSES: Cholecystitis, cholelithiasis. PROCEDURE: Laparoscopic cholecystectomy. SURGEON: Celestino Cheema MD INDICATIONS: The patient is a 36-year-old female who was admitted to the hospital with right upper quadrant abdominal pain, nausea, vomiting. Ultrasound showing gallstones. Procedure of laparoscopic cholecystectomy was explained to the patient in detail. Risks, benefits were also discussed including bleeding, infection, injury to intra-abdominal contents, possibly necessitating further open operations. Alternatives of this procedure were also discussed with the patient who seemed to understand and gave verbal and written consent to have the procedure performed. DESCRIPTION OF PROCEDURE: The patient was taken to the operating room and placed in the supine position, general anesthesia was initiated. Once the patient was asleep and intubated, her abdomen was prepped and draped in usual sterile fashion using ChloraPrep. An area just below the umbilicus injected 0.25% Marcaine with epinephrine. Incision was made with an 11 blade scalpel and a Veress needle was placed within the abdomen. Pneumoperitoneum was achieved. Once this was complete, an 11 mm port was placed and a 5 mm camera was placed within the abdomen. Abdomen was inspected. No other abnormalities were noted. There were some adhesions to the gallbladder from the omentum. At this point, three 5 mm ports were then placed under direct visualization, 1 in the epigastrium, 2 in the right upper quadrant. The dome of the gallbladder was grasped and retracted cephalad. The adhesions to the omentum were taken down with blunt dissection down to the triangle of Calot. The infundibulum was grasped and retracted laterally further exposing the triangle of Calot. Adherent tissues of the triangle were taken down with blunt dissection exposing the cystic duct and cystic artery. Both were doubly clipped and transected. The gallbladder was taken off the liver with hook electrocautery, placed in EndoCatch bag and removed from the umbilicus. The right upper quadrant was irrigated and suctioned dry. Hemostasis seemed to be appropriate, the pneumoperitoneum was reduced. All ports were removed. Fascial defect at the umbilicus closed with [id number] 0 Vicryl suture and the skin was reapproximated at all port sites with 4-0 subcuticular Monocryl. Mastisol, Steri-Strips and Band-Aids were applied as dressings. The patient was awakened, extubated in the operating room, taken to recovery in stable condition. All sponge, instrument counts listed as correct. Estimated blood loss 10 mL. CELESTINO CHEEMA MD DR: SHOAIB/corazon JOB#: [id number] / [id number]
[2017-03-01] MEDS: KETOROLAC 15 MG/ML VIAL. IV SCH ×2 (00:44→06:00)
[2017-03-01 03:00] VITALS: BP_SYST 118; BP_SYST 130; BP_DIAS 63; BP_DIAS 75
[2017-03-01] MEDS: LEVOTHYROXINE 100 MCG TABLET PO SCH (07:00)
--- NOTE | 2017-03-03 13:29 | PATHOLOGY ---
PATHOLOGY REPORT * * * * * * * * FINAL DIAGNOSIS: Gallbladder, laparoscopic cholecystectomy: - Cholelithiasis. - Chronic and focal mild acute cholecystitis. - Reactive changes of pericystic duct lymph node. COMMENT: There is no evidence of malignancy. (JPM:; d/t: 03/03/17) REPORT ELECTRONICALLY SIGNED BY: Bryan Abraham M.D. DATE/TIME: 03/03/2017 13:29 * * * * * * * * GROSS PATHOLOGY: Received in formalin labeled "Idalmis Peck, gallbladder and contents," is a 9.9 x 2.6 x 2.4 cm, intact gallbladder with pink-parisi serosal surfaces. There is a 0.7 x 0.4 x 0.4 cm possible lymph node near the cystic neck. Opening the gallbladder reveals velvety and light-parisi mucosa and an average wall thickness of 0.1 cm. Calculi are present and no masses are noted grossly. Stage Set Designer sections from the body, fundus and possible lymph node are submitted along with the proximal margin in cassette A1. (KAH; 02/28/2017) INITIAL CPT CODE(S): A; 05261 Professional services performed [place] [facility] [place] [address] Technical services performed by [facility] at [address] [place] [address], [facility] [address], [place] [address]. SPECIMEN(S) RECEIVED: A.Gallbladder and contents CLINICAL HISTORY: Possible acute cholecystitis PATIENT: IDALMIS PECK /AGE: 1 1980 (Age: 36) PATIENT #: [id number] ALT CASE #: SPECIMEN COLLECTION DATE: 02/28/2017 SPECIMEN RECEIVED DATE: 02/28/2017 [facility] - [id number] [place] [address] - PHONE: [phone] * * * END OF REPORT * * *
== END 2017-03-01 07:00 | disposition left against medical advice (07) | DRG 419 ==
LOC: ER 18:37 → EDBD 18:37 → 5 SOUTH 22:48
PROVIDERS: ADMIT Internal Medicine; ATTEND Internal Medicine
PROC: 0FT44ZZ Resection of Gallbladder, Percutaneous Endoscopic Approach (ICD-10-PCS; principal; 2017-02-28 12:30)
DX: K80.00 Calculus of gallbladder with acute cholecystitis without obstruction (principal); K82.8 Other specified diseases of gallbladder; K66.0 Peritoneal adhesions (postprocedural) (postinfection); J45.909 Unspecified asthma, uncomplicated; I10 Essential (primary) hypertension; E03.9 Hypothyroidism, unspecified; Z53.21 Procedure and treatment not carried out due to patient leaving prior to being seen by health care provider
CPT/HCPCS: 36415; 76705; 80048; 80053; 81001; 81025; 82274; 83690; 85027; 87086; 96361; 96374; 96375; 96376; C1782; G0481; J0360; J0690; J0780; J1885; J2270; J2405; J2704; J2710; J3010; J3490; J7030; Q9967; 99285-25